=== PATIENT | male | born 2000 | race Caucasian/White ===

== ENCOUNTER 2025-03-06 19:17 | Emergency (ER) | payer BC, SELFPAY ==
[2025-03-06 19:19] VITALS: BP 173/90; PULSE 79; RESP 14; TEMP 35.6; O2SAT 99
[2025-03-06 19:35] VITALS: BMI 44.6
--- NOTE | 2025-03-06 20:01 | RAD_ITS ---
PROCEDURE: RIGHT ANKLE MIN 3 VIEWS 03/06/2025 REASON FOR EXAM: INJURY TECHNIQUE: RIGHT ANKLE MIN 3 VIEWS COMPARISON: None. FINDINGS: No acute fracture or dislocation. Alignment is anatomic. Congruent ankle mortise. Preserved joint spaces. Normal bone mineralization. Prominent soft tissue swelling about the ankle predominantly overlying the lateral malleolus. No radiopaque foreign body. RAD/Ankle min 3 Views IMPRESSION: No acute fracture or dislocation. Prominent soft tissue swelling about the ank le mainly overlying the lateral malleolus, which may represent ankle sprain. Reading Location: [id number]
--- NOTE | 2025-03-06 21:12 | EDS_ITS ---
HPI History of Present Illness Chief Complaint: Lower Extremity Injury Informant: patient Narrative Narrative: Inversion injury right ankle jumping off a ladder. He was doing some work on the home when he ran into a hornets that he jumped down. Turned his ankle. No other injuries. No history of fractures. No allergies. PFSH PFSH Medical History no medical history Home Medications ?Medication ?Instructions ?Recorded ?Last Taken ?Type NK 03/06/25 Unknown History Allergy/AdvReac Type Severity Reaction Status Date / Time No Known Allergies Allergy Verified 03/06/25 19:18 Family History no significant family his Surgical History no surgical history Social History Smoking Status: Current every day smoker tobacco type: e-cigarettes ROS ROS ED Constitutional Constitutional ED: Denies fever(s) Cardiovascular Cardiovascular: Denies chest pain Respiratory/Chest Respiratory/Chest: Denies cough Gastrointestinal Gastrointestinal: Denies diarrhea or vomiting Musculoskeletal Musculoskeletal: Reports other Details: Right ankle injury Integumentary Denies rash or wounds Neurologic Neurologic: Denies weakness EXAM Physical Exam Const Vital Signs: 03/06/25 19:19 03/06/25 21:22 Temperature 96.1 F L 96.1 F L Temperature Source Temporal Pulse Rate 79 79 Respiratory Rate 14 14 Blood Pressure 173/90 H 147/99 H Blood Pressure Mean 117 115 Pulse Ox 99 99 Oxygen Delivery Method Room Air Positive well nourished and well developed General Appearance ED: well developed HEENT normocephalic and atraumatic Eyes General Eye ED: Yes normal appearance of both eyes Neck full ROM Resp normal respiratory effort and normal air movement Cardio regular rate and regular rhythm GI soft to palpation Extremity Extremity Narrative: Right lower extremity no proximal femur tenderness. No medial mall tenderness or swelling lateral malleolus tenderness ATFL and fibular calcaneal ligament. No midfoot or proximal fifth base tenderness. Skin is intact. No deformities. Neuro oriented x3 Skin no rashes or lesions noted and no wounds MDM MDM MDM Narrative Medical decision making narrative: Interventions / MDM: Differential diagnosis: Ankle sprain. Diagnosis considered but do not suspect: Fracture or dislocation however x-ray negative. My EKG interpretation: N/A Imaging independently reviewed and interpreted by myself: 3 view right ankle: Soft tissue swelling no fracture or dislocation. External documents reviewed: N/A Test considered but not ordered:N/A ED course: Patient declined any medications ice was placed. X-ray ordered. Ankle x-ray negative for any fracture dislocation. Aircast provided. He will continue RICE therapy. Discussed continuing NSAIDs [id number] at home if needed. Outpatient follow-up with As needed. All questions were answered. Re-evaluation: stable Disposition discussed with patient/family/significant other: Patient Case discussed with consulting clinician: N/A This note was generated with [employer] dictation software. It may contain incorrect words, spelling, and punctuation that were not noted in checking the note before signing. Radiography Diagnostic Testing: Clinical Impression(s) from Imaging Studies Ankle X-Ray 03/06/25 20:01 IMPRESSION: No acute fracture or dislocation. Prominent soft tissue swelling about the ankle mainly overlying the lateral malleolus, which may represent ankle sprain. Reading Location: [facility] Discharge Plan Triage Chief Complaint: Lower Extremity Injury ED Provider: Luis Haskins Dx/Rx/DC Orders Clinical Impression: Right ankle sprain, Fall Instructions: ED Ankle Sprain (Adult), ED Air Stirrup Ank Brace Inf Td Prescriptions: No Action NK Primary Care Provider: Meghann Cruz Referrals: Meghann Cruz MD [Primary Care Provider] - 1-2 Weeks Activity Restrictions/Additional Instructions: Ankle x-ray negative for any fracture or dislocation. Use Aircast for support. Tylenol or Motrin as needed. Follow-up with your doctor as needed. Print Language: Slovenian Disposition Disposition: Home, Self Care Discharge Date/Time: 03/06/25 21:25
[2025-03-06 21:22] VITALS: BP 147/99; PULSE 79; RESP 14; TEMP 35.6; O2SAT 99
== END 2025-03-06 21:25 | disposition home or self-care (01) ==
PROVIDERS: Emergency Provider Emergency Medicine; PCP Family Medicine; Visit Provider Emergency Medicine
DX: S93.401A Sprain of unspecified ligament of right ankle, initial encounter (principal); W17.89XA Other fall from one level to another, initial encounter; Y92.009 Unspecified place in unspecified non-institutional (private) residence as the place of occurrence of the external cause; F17.290 Nicotine dependence, other tobacco product, uncomplicated
CPT/HCPCS: 73610; 99284